=== PATIENT | female | born 1995 | race Caucasian/White ===

== ENCOUNTER 2022-09-16 09:02 | Inpatient (IN) ==
[2022-09-16] MEDS ORDERED: LACTATED RINGER'S 1,000 ML IV ONE (10:14)
[2022-09-16] MEDS: LACTATED RINGER'S 1,000 ML IV PRN ×2 (15:00→16:27)
[2022-09-16] MEDS ORDERED: LIDOCAINE 1% LOCAL 20 ML VIAL INFIL PRN (15:07)
[2022-09-16] MEDS ORDERED: OXYTOCIN 30 UNITS/500 ML BAG IV PRN ×2 (15:07→22:38)
--- NOTE | 2022-09-16 15:13 | Labor Progress Brief Note ---
Date of Service September 16, 2022 Assessment & Plan (1) : Plan: Pt admitted after prolonged labor check FHR; CAT1 Ctx 2-3mins VE 4/100/-2 pt wshes to have epidural analgesia Results & Data ([facility]) Vital Signs (Past 12 Hours) Vital Signs Temp Pulse Resp BP 09/16/22 14:49 76 124/80 09/16/22 09:46 36.8 C 22
[2022-09-16 15:37] LABS: Hematocrit (blood only) 36.2 % (34.1-44.9); Hemoglobin 12.1 g/dl (12.0-16.0); Mean Corpuscular Hemoglobin 30.2 pg (25.0-34.0); Mean Corpuscular Hgb Conc 33.4 g/dL (32.0-36.0); Mean Corpuscular Volume 90.3 fL (80.0-100.0); Mean Platelet Volume 9.1 fL (9.4-12.3); Platelet Count 264 K/uL (130-400); RDW Coefficient of Variation 13.4 % (11.5-14.5); RDW Standard Deviation 43.8 fL (36.4-46.3); Red Blood Count 4.01 M/uL (3.93-5.22); White Blood Count 15.17 K/ul (4.8-10.8)
[2022-09-16] MEDS ORDERED: ePHEDrine sulfate 50 MG/ML AMP ONE (15:54)
[2022-09-16] MEDS ORDERED: SODIUM CHLORIDE 0.9% INJ 10 ML VIAL ONE (15:55)
[2022-09-16] MEDS ORDERED: LIDOCAINE 2%/EPINEPHRINE 1:200,000 20 ML SDV ONE (15:55)
[2022-09-16] MEDS ORDERED: BUPIVACAINE 0.25% 30 ML VIAL ONE (15:55)
[2022-09-16] MEDS ORDERED: fentaNYL citrate 100 MCG/2 ML VIAL ONE (15:55)
[2022-09-16] MEDS ORDERED: fentaNYL 2MCG/ML ROPIVACAINE 1.25MG/ML 100 ML BAG EPI ONE (15:55)
[2022-09-16] MEDS ORDERED: ONDANSETRON INJ 2 MG/ML 2 ML VIAL IV PRN (16:35)
[2022-09-16] MEDS ORDERED: NALOXONE HCL 1 MG in SODIUM CHLORIDE 0.9% 1000ML 1,000 ML IV PRN (16:35)
[2022-09-16] MEDS ORDERED: NALOXONE HCL 0.4 MG/1 ML VIAL/CARP IV PRN (16:35)
[2022-09-16] MEDS ORDERED: fentaNYL 2MCG/ML ROPIVACAINE 1.25MG/ML 100 ML BAG EPI PRN (16:35)
[2022-09-16] MEDS ORDERED: diphenhydrAMINE 50 MG/ML VIAL IV PRN (16:35)
[2022-09-16] MEDS ORDERED: NALBUPHINE HCL INJ 10 MG/ML AMP IV PRN (16:35)
[2022-09-16] MEDS ORDERED: ePHEDrine sulfate 50 MG/ML AMP IV PRN (16:35)
--- NOTE | 2022-09-16 16:35 | Anesthesiology Consultation ---
Date of Service September 16, 2022 Assessment & Plan ASA ASA2 Proposed Anesthesia Anesthesia Type: Labor Epidural Risk / Benefits Reviewed With: PT / POA / Parent / Guardian, Accepts Plan and Informed Consent Obtained History Height/Weight Height: 5 ft 2 in Weight: 79.832 kg Allergies Allergy/AdvReac Type Severity Reaction Status Date / Time No Known Allergies Allergy Unverified 09/16/22 09:40 Medications Home Medications Medication Instructions Recorded Confirmed Last Taken citalopram 20 mg tablet (Celexa) 20 mg PO DAILY 09/16/22 09/16/22 09/15/22 vits no.124-ferrous fum 1 tab PO DAILY 09/16/22 09/16/22 09/15/22 27 mg iron-folic acid 800 mcg tablet ( Vitamin) Active Medications Generic Name Dose Route Start Last Admin Trade Name Freq PRN Reason Stop Dose Admin Lactated Ringer's 1,000 mls @ 125 mls/hr 09/16/22 15:07 09/16/22 16:27 Lr IV 09/18/22 15:06 125 mls/hr .Q8H PRN Administration L&D Protocol Protocol Past Medical History Medical History (Updated 09/16/22 @ 15:12 by Arash Bradley MD) Anxiety and depression Exercise / Class Metabolic Activity II 4-5 Yardwork/Stairs/Walk up hill Past Surgical History Surgical History (Updated 09/16/22 @ 09:40 by Stephanie Farley RN) H/O wisdom tooth extraction Past Anesthesia History No Hx of Anesthesia Complications and No Family Hx of Anesthesia Complications History of PONV No Hx of PONV and No Hx of Motion Sickness Social History Smoking Status: Former smoker Hx Alcohol Use: No Hx Substance Use: No substance use type: does not use Review of Systems denies fever/cough/ colds/ chest pain/ SOB/ CASIMIRO denies CASIMIRO Physical Exam Vital Signs Last Vital Signs Temp 36.8 C 09/16/22 16:12 Pulse 85 09/16/22 17:32 Resp 22 09/16/22 09:46 BP 145/85 H 09/16/22 17:28 Pulse Ox 97 09/16/22 17:32 ENMT Mouth: no TMJ abnormality and no dentition abnormality Thyromental Distance: > or= 3.5 Finger Breadths Mallampati Class: II Neck neck extension not limited Respiratory normal respiratory effort; no respiratory distress Auscultation: lungs clear to auscultation bilaterally Cardiovascular Rate/Rhythm: regular rate and regular rhythm Neurologic moves all extremities Psychiatric Orientation: alert and oriented x 3 Testing Laboratory Results 09/16/22 15:25
--- NOTE | 2022-09-16 18:27 | Labor Progress Brief Note ---
Date of Service September 16, 2022 Assessment & Plan (1) : Plan: Pt doing well Epidural analgesia in place FHR; CAT 1 ctx 3-4min VE: 6/90/-2 AROM with amnio hook- clear fluid anticipate VD Admission and Anticipated Discharge Date Admission Date: September 16, 2022 Results & Data ([facility]) Vital Signs (Past 12 Hours) Vital Signs Temp Pulse Resp BP Pulse Ox 09/16/22 18:22 94 H 96 09/16/22 18:17 108 H 99 09/16/22 18:12 97 H 97 09/16/22 18:07 98 H 97 09/16/22 18:03 87 118/60 09/16/22 18:02 83 97 09/16/22 17:57 86 97 09/16/22 17:52 88 97 09/16/22 17:49 86 121/58 L 09/16/22 17:47 87 97 09/16/22 17:44 88 121/68 09/16/22 17:42 85 97 09/16/22 17:37 89 97 09/16/22 17:38 90 123/72 09/16/22 16:30 20 09/16/22 16:30 20 09/16/22 17:33 90 133/71 09/16/22 17:30 18 09/16/22 17:30 18 09/16/22 17:32 85 97 09/16/22 17:28 91 H 145/85 H 09/16/22 17:27 92 H 98 09/16/22 17:23 94 H 141/83 H 09/16/22 17:22 90 97 09/16/22 17:18 99 H 120/73 09/16/22 17:17 96 H 97 09/16/22 17:12 97 09/16/22 17:12 95 H 09/16/22 17:12 96 H 129/66 09/16/22 17:10 96 H 134/70 09/16/22 17:07 100 H 99 09/16/22 17:08 95 H 137/71 09/16/22 17:06 96 H 148/79 H 09/16/22 17:03 104 H 157/79 H 09/16/22 17:02 111 H 165/79 H 97 09/16/22 16:57 106 H 160/77 H 98 09/16/22 16:54 112 H 168/76 H 09/16/22 16:52 99 09/16/22 16:52 127 H 09/16/22 16:52 129 H 149/87 H 09/16/22 16:47 96 H 99 09/16/22 16:44 96 H 139/85 09/16/22 16:42 94 H 98 09/16/22 16:37 88 98 09/16/22 16:32 74 98 09/16/22 16:27 75 99 09/16/22 16:22 71 98 09/16/22 16:17 75 98 09/16/22 16:12 36.8 C 82 100 09/16/22 14:49 76 124/80 09/16/22 09:46 36.8 C 22
[2022-09-16] MEDS ORDERED: bisacodyL 10 MG SUPP PR PRN (22:38)
[2022-09-16] MEDS ORDERED: miSOPROStoL 200 MCG TAB PR ONE (22:38)
[2022-09-16] MEDS ORDERED: BENZOCAINE 20% AER SPR 82.5 GM CAN EXT PRN (22:38)
[2022-09-16] MEDS ORDERED: METHYLERGONOVINE MALEATE 0.2 MG/ML AMP IM ONE (22:38)
[2022-09-16] MEDS ORDERED: DIPHTHERIA/TETANUS/PERTUSSIS 0.5 ML SYR/VIAL IM ONE (22:38)
[2022-09-16] MEDS ORDERED: HYDROCORTISONE ACETATE 25 MG SUPP PR PRN (22:38)
--- NOTE | 2022-09-16 23:17 | Delivery Summary ---
DELIVERY NOTE: The patient delivered a live infant male in occiput anterior presentation. There was no nuchal cord. was delivered. Delayed cord clamp was performed. Infant was handed over to the waiting pediatric team. Cord blood was obtained, cord gases were obtained as well. Placenta sp ontaneously delivered. Inspection of the placenta showed a 3-vessel cord. Otherwise, normal placent a. Inspection of the perineum showed a second-degree midline laceration, which was repaired in layer s with 2-0 and 3-0 Vicryl. Rectal exam post-repair showed good sphincter tone. There were no suture s palpated in the rectum. Estimated blood loss was 450 mL. Baby and mother are doing well in recovery. All instruments were re moved from the vagina and accounted for x2 including sponges, needles, and retractors. Job ID: [id number]
[2022-09-17] MEDS: IBUPROFEN 600 MG TAB PO PRN ×5 (00:09→22:00)
[2022-09-17] MEDS ORDERED: miSOPROStoL 200 MCG TAB ONE (01:34)
[2022-09-17] MEDS ORDERED: METHYLERGONOVINE MALEATE 0.2 MG/ML AMP ONE (01:35)
[2022-09-17] MEDS: ACETAMINOPHEN 325 MG TAB PO PRN ×2 (05:07→22:01)
--- NOTE | 2022-09-17 07:04 | Obstetrical Progress Note ---
Date of Service September 17, 2022 Assessment & Plan (1) : PPD #1 pt doing well no complaints d/c AM tomorrow CBC pending Results & Data ([facility]) Vital Signs (Past 12 Hours) Vital Signs Temp Pulse Pulse Resp BP BP Pulse Ox 09/17/22 03:10 36.5 C 91 H 18 116/76 98 09/17/22 00:59 36.8 C 85 18 121/79 96 09/17/22 00:35 36.9 C 18 09/17/22 00:05 18 09/16/22 23:35 18 09/16/22 23:20 18 09/16/22 23:05 18 09/16/22 22:50 18 09/16/22 22:35 36.9 C 18 09/17/22 00:42 87 124/72 09/17/22 00:13 87 123/70 09/16/22 23:18 84 119/60 09/16/22 23:03 97 H 119/57 L 09/16/22 22:48 105 H 114/57 L 09/16/22 21:30 20 09/16/22 21:30 20 09/16/22 22:33 112 H 121/59 L 09/16/22 22:18 101 H 126/57 L 09/16/22 22:19 112 H 110/57 L 09/16/22 22:12 136 H 96 09/16/22 22:07 133 H 94 09/16/22 22:02 94 09/16/22 22:02 125 H 09/16/22 22:03 107 H 120/58 L 09/16/22 22:02 114 H 89 L 09/16/22 21:57 110 H 96 09/16/22 21:56 110 H 88 L 09/16/22 21:52 116 H 97 09/16/22 21:51 113 H 90 09/16/22 21:49 96 H 127/60 09/16/22 21:47 105 H 95 09/16/22 21:42 98 H 97 09/16/22 21:37 93 H 97 09/16/22 21:33 100 H 122/76 09/16/22 21:32 90 97 09/16/22 21:27 94 H 97 09/16/22 21:22 90 97 09/16/22 21:19 87 111/69 09/16/22 21:17 91 H 97 09/16/22 21:12 87 97 09/16/22 21:00 18 09/16/22 21:00 37.6 C H 18 09/16/22 21:07 87 97 09/16/22 21:03 88 122/69 09/16/22 21:02 94 H 98 09/16/22 20:57 92 H 98 09/16/22 20:52 96 H 98 09/16/22 20:48 92 H 111/69 09/16/22 20:47 85 97 09/16/22 20:42 84 96 09/16/22 20:37 83 96 09/16/22 20:34 86 111/65 09/16/22 20:32 81 98 09/16/22 20:30 18 09/16/22 20:30 18 09/16/22 20:27 86 98 09/16/22 20:00 18 09/16/22 20:00 18 09/16/22 20:22 83 99 09/16/22 20:19 81 119/67 09/16/22 20:17 84 98 09/16/22 20:12 82 98 09/16/22 20:07 80 98 09/16/22 20:03 90 120/67 09/16/22 20:02 102 H 98 09/16/22 19:57 77 97 09/16/22 19:52 73 97 09/16/22 19:50 80 113/64 09/16/22 19:48 111 H 91 09/16/22 19:47 78 99 09/16/22 19:42 79 99 09/16/22 19:37 78 98 09/16/22 19:34 76 110/65 09/16/22 19:30 18 09/16/22 19:30 18 09/16/22 19:32 79 99 09/16/22 19:27 78 98 09/16/22 19:22 77 100 09/16/22 19:20 74 113/65 09/16/22 19:17 75 98 09/16/22 19:12 78 98 09/16/22 19:07 77 99 09/16/22 19:03 85 110/67 O2 Del Method 09/17/22 03:10 Room Air 09/17/22 00:59 Room Air 09/17/22 00:35 09/17/22 00:05 09/16/22 23:35 09/16/22 23:20 09/16/22 23:05 09/16/22 22:50 09/16/22 22:35 09/17/22 00:42 09/17/22 00:13 09/16/22 23:18 09/16/22 23:03 09/16/22 22:48 09/16/22 21:30 09/16/22 21:30 09/16/22 22:33 09/16/22 22:18 09/16/22 22:19 09/16/22 22:12 09/16/22 22:07 09/16/22 22:02 09/16/22 22:02 09/16/22 22:03 09/16/22 22:02 09/16/22 21:57 09/16/22 21:56 09/16/22 21:52 09/16/22 21:51 09/16/22 21:49 09/16/22 21:47 09/16/22 21:42 09/16/22 21:37 09/16/22 21:33 09/16/22 21:32 09/16/22 21:27 09/16/22 21:22 09/16/22 21:19 09/16/22 21:17 09/16/22 21:12 09/16/22 21:00 09/16/22 21:00 09/16/22 21:07 09/16/22 21:03 09/16/22 21:02 09/16/22 20:57 09/16/22 20:52 09/16/22 20:48 09/16/22 20:47 09/16/22 20:42 09/16/22 20:37 09/16/22 20:34 09/16/22 20:32 09/16/22 20:30 09/16/22 20:30 09/16/22 20:27 09/16/22 20:00 09/16/22 20:00 09/16/22 20:22 09/16/22 20:19 09/16/22 20:17 09/16/22 20:12 09/16/22 20:07 09/16/22 20:03 09/16/22 20:02 09/16/22 19:57 09/16/22 19:52 09/16/22 19:50 09/16/22 19:48 09/16/22 19:47 09/16/22 19:42 09/16/22 19:37 09/16/22 19:34 09/16/22 19:30 09/16/22 19:30 09/16/22 19:32 09/16/22 19:27 09/16/22 19:22 09/16/22 19:20 09/16/22 19:17 09/16/22 19:12 09/16/22 19:07 09/16/22 19:03
[2022-09-17 08:17] LABS: Hematocrit (blood only) 38.5 % (34.1-44.9); Hemoglobin 13.1 g/dl (12.0-16.0); Mean Corpuscular Volume 88.3 fL (80.0-100.0); Mean Platelet Volume 9.7 fL (9.4-12.3); Platelet Count 263 K/uL (130-400); RDW Coefficient of Variation 13.3 % (11.5-14.5); RDW Standard Deviation 42.9 fL (36.4-46.3); Red Blood Count 4.36 M/uL (3.93-5.22); White Blood Count 24.91 K/ul (4.8-10.8)
[2022-09-17] MEDS: DOCUSATE SODIUM 100 MG CAP PO SCH ×2 (08:54→22:01)
[2022-09-17] MEDS: FERROUS SULFATE 325 MG TAB PO SCH (08:54)
[2022-09-17] MEDS: PRENATAL VITAMIN 1 TAB PO SCH (08:54)
[2022-09-17] MEDS: CITALOPRAM 20 MG TAB PO SCH (08:54)
--- NOTE | 2022-09-17 08:59 | Anesthesia Procedure Note ---
Date of Service September 17, 2022 Anesthesia Post Epidural Note Vital Signs Vital Signs: Temp Pulse Resp BP Pulse Ox O2 Del Method 36.5 C 91 H 18 116/76 98 09/17/22 03:10 09/17/22 03:10 09/17/22 03:10 09/17/22 03:10 09/17/22 03:10 09/17/22 03:10 Pain Intensity Bilateral Abdomen: Pain Intensity: 3 Notes Mental Status: alert / awake / arousable and participated in evaluation Nausea / Vomiting: adequately controlled Pain: adequately controlled Airway Patency, RR, SpO2: stable & adequate BP & HR: stable & adequate Hydration State: stable & adequate Neuraxial Anesthesia: was administered and sensory block resolved Anesthetic Complications: no major complications apparent and Pt Satisfied with anesthetic care Epidural: Removed without complications and With tip intact
[2022-09-17] MEDS ORDERED: bisacodyL 5 MG TABEC PO SCH (20:00)
[2022-09-18] MEDS: IBUPROFEN 600 MG TAB PO PRN (04:46)
[2022-09-18 06:19] LABS: Hematocrit (blood only) 35.2 % (34.1-44.9)
[2022-09-18] MEDS: FERROUS SULFATE 325 MG TAB PO SCH (07:35)
[2022-09-18] MEDS: PRENATAL VITAMIN 1 TAB PO SCH (07:35)
[2022-09-18] MEDS: DOCUSATE SODIUM 100 MG CAP PO SCH (07:35)
[2022-09-18] MEDS: CITALOPRAM 20 MG TAB PO SCH (07:36)
[2022-09-18 08:47] LABS: Basophils # (auto) 0.05 K/uL (0-0.2); Basophils % (auto) 0.3 %; Eosinophils # (auto) 0.15 K/uL (0-0.50); Immature Granulocytes % (auto) 0.7 %; Lymphocytes # (auto) 3.29 K/uL (1.2-3.4); Lymphocytes % (auto) 22.1 %; Mean Corpuscular Hemoglobin 29.9 pg (25.0-34.0); Mean Platelet Volume 9.8 fL (9.4-12.3); Monocytes # (auto) 0.66 K/uL (0.24-0.82); Monocytes % (auto) 4.4 %; Neutrophils # (auto) 10.61 K/uL (1.4-6.5); Neutrophils % (auto) 71.5 %; Platelet Count 284 K/uL (130-400); RDW Coefficient of Variation 13.5 % (11.5-14.5); RDW Standard Deviation 44.8 fL (36.4-46.3); Red Blood Count 3.98 M/uL (3.93-5.22); White Blood Count 14.86 K/ul (4.8-10.8)
--- NOTE | 2022-09-18 09:03 | Obstetrical Progress Note ---
Date of Service September 18, 2022 Assessment & Plan Admission and Anticipated Discharge Date Admission Date: September 16, 2022 Subjective Patient is seen and examined. She feels well, no complaints. Ambulating without dizziness Voiding without difficulty Tolerating regular diet with out N&V Bleeding is minimal No fever/ chills/ CP/ SOB/ N&V/ Leg pain Breast feeding without problems Lab Results 09/16/22 09/16/22 09/16/22 Range/Units 15:25 22:11 Unknown WBC 15.17 H (4.8-10.8) K/ul RBC 4.01 (3.93-5.22) M/uL Hgb 12.1 (12.0-16.0) g/dl Hct 36.2 (34.1-44.9) % MCV 90.3 (80.0-100.0) fL MCH 30.2 (25.0-34.0) pg MCHC 33.4 (32.0-36.0) g/dL RDW Std Deviation 43.8 (36.4-46.3) fL RDW Coeff of Josep 13.4 (11.5-14.5) % Plt Count 264 (130-400) K/uL MPV 9.1 L (9.4-12.3) fL Immature Gran % (Auto) % Neut % (Auto) % Lymph % (Auto) % [place] % (Auto) % Eos % (Auto) % Baso % (Auto) % Neut # (Auto) (1.4-6.5) K/uL Lymph # (Auto) (1.2-3.4) K/uL [place] # (Auto) (0.24-0.82) K/uL Eos # (Auto) (0-0.50) K/uL Baso # (Auto) (0-0.2) K/uL Immature Gran # (Auto) (0.00-0.02) K/uL Cord VBG pH TNP Cord VBG pCO2 TNP Cord VBG pO2 TNP Cord VBG HCO3 TNP Cord VBG Base Excess TNP Cord VBG O2 Sat TNP Blood Gas Comments Not Reportable SARS-CoV-2, RNA, NAAT NEGATIVE (NEGATIVE) 09/17/22 09/18/22 Range/Units 07:39 06:02 WBC 24.91 H D 14.86 H D (4.8-10.8) K/ul RBC 4.36 3.98 (3.93-5.22) M/uL Hgb 13.1 12.0 (12.0-16.0) g/dl Hct 38.5 35.2 (34.1-44.9) % MCV 88.3 (80.0-100.0) fL MCH 30.0 29.9 (25.0-34.0) pg MCHC 34.0 (32.0-36.0) g/dL RDW Std Deviation 42.9 44.8 (36.4-46.3) fL RDW Coeff of Josep 13.3 13.5 (11.5-14.5) % Plt Count 263 284 (130-400) K/uL MPV 9.7 9.8 (9.4-12.3) fL Immature Gran % (Auto) 0.7 % Neut % (Auto) 71.5 % Lymph % (Auto) 22.1 % [place] % (Auto) 4.4 % Eos % (Auto) 1.0 % Baso % (Auto) 0.3 % Neut # (Auto) 10.61 H (1.4-6.5) K/uL Lymph # (Auto) 3.29 (1.2-3.4) K/uL [place] # (Auto) 0.66 (0.24-0.82) K/uL Eos # (Auto) 0.15 (0-0.50) K/uL Baso # (Auto) 0.05 (0-0.2) K/uL Immature Gran # (Auto) 0.10 H (0.00-0.02) K/uL Cord VBG pH Cord VBG pCO2 Cord VBG pO2 Cord VBG HCO3 Cord VBG Base Excess Cord VBG O2 Sat Blood Gas Comments SARS-CoV-2, RNA, NAAT (NEGATIVE) Vital Signs Temp Pulse Resp BP Pulse Ox O2 Del Method 09/18/22 07:45 36.5 C 78 16 112/73 96 Room Air 09/18/22 00:00 36.6 C 86 18 101/68 97 Room Air Vital Signs Temp Pulse Resp BP Pulse Ox O2 Del Method 09/18/22 07:45 36.5 C 78 16 112/73 96 Room Air 09/18/22 00:00 36.6 C 86 18 101/68 97 Room Air 09/17/22 20:00 36.5 C 88 18 119/75 95 Room Air 09/17/22 16:15 36.4 C L 80 18 97/66 L 09/17/22 11:30 36.6 C 89 16 104/67 PE: General: Alert, orientedx3, NAD Abd: soft, NT, fundus firm, below Umbilicus Perineum intact, Lochia rubra minimal Ext; NT, no edema AP: 27 yo s/p , ppd# 2 VSS Afebrile doing well Continue routine care All questions were answered Discussed when to call D/C home , f/u in office Results & Data ([facility]) Vital Signs (Past 12 Hours) Vital Signs Temp Pulse Resp BP Pulse Ox O2 Del Method 09/18/22 07:45 36.5 C 78 16 112/73 96 Room Air 09/18/22 00:00 36.6 C 86 18 101/68 97 Room Air
[2022-09-18 12:16] LABS: Mean Corpuscular Hgb Conc 34.1 g/dL (32.0-36.0); Mean Corpuscular Volume 88.9 fL (80.0-100.0)
--- NOTE | 2022-09-27 06:54 | Coding Query ---
CODING QUERY To promote full compliance with coding requirements relating to patient care, provider participation is requested in all cases of commercial construction superintendent uncertainty. Please assist us with the question(s) below: Coding Question(s): Please clarify the gestation weeks at time of admission. This documentation is missing in the progress notes. Physician's Response(s): 37.4 weeks Thank you Monica Miller Principal Diagnosis: "that condition established after study, to be chiefly responsible for occasioning the admission of the patient to the hospital for care." Co-Existing Principal Diagnosis: "when two or more diagnoses equally meet the criteria for principal diagnosis as determined by the circumstances of admission, diagnostic work up, and/or therapy provided, and the Alphabetic Index, Tabular List, or another coding guideline does not provide sequencing direction, any one of the diagnoses may be sequenced first." "When the physician has documented what appears to be a current diagnosis in the body of the record, but has not included the diagnosis in the final diagnostic statement, the physician should be asked whether the diagnosis should be added." (Source Coding [facility] 2 QTR90. p3-4) DUTCH
== END 2022-09-18 10:30 | disposition home or self-care (01) | DRG 807 ==
LOC: OPB 09:02 → 4S1 09:06 → 4E2 09-17 01:00

== ENCOUNTER 2024-01-28 08:35 | Inpatient (IN) ==
[2024-01-28] MEDS ORDERED: OXYTOCIN 30 UNITS/NSS 30 UNITS/500 ML BAG IV PRN ×2 (09:25→17:27)
[2024-01-28] MEDS ORDERED: CALCIUM CARBONATE 500 MG CHEWABLE TAB PO PRN (09:25)
[2024-01-28] MEDS ORDERED: LIDOCAINE 1% LOCAL 20 ML VIAL INFIL PRN (09:25)
--- NOTE | 2024-01-28 09:31 | History & Physical Report ---
Date of Service January 28, 2024 Assessment & Plan (1) labor in third trimester: Plan: 28 yo at 36.5 wks presenting in active labor, VSS afebrile, FHR reassuring GBS unknown Plan to admit, monitor, labs, PCN for unknonw GBS, epidural for pain History of Present Illness Primary Care Provider: NO PCP Patient is a 28 yo at 36.5 wks who walked in to L&D with ctxs started at 03:30 AM, getting more regular and painful. No LOF/VB +FM Her has been uncomplicated except unknown GBS and close interval. Allergies Allergy/AdvReac Type Severity Reaction Status Date / Time No Known Allergies Allergy Unverified 09/16/22 09:40 Home Medications Medication Instructions Recorded Confirmed Type citalopram 20 mg tablet (Celexa) 20 mg PO DAILY 09/16/22 09/16/22 History vits no.124-ferrous fum 1 tab PO DAILY 09/16/22 09/16/22 History 27 mg iron-folic acid 800 mcg tablet ( Vitamin) ibuprofen 600 mg tablet 600 mg PO Q6 #40 tabs 09/18/22 Rx vits no.124-ferrous fum 1 tab PO DAILY@08 #90 tabs 09/18/22 Rx 27 mg iron-folic acid 800 mcg tablet ( Vitamin) Patient History Medical History Anxiety and depression Surgical History H/O wisdom tooth extraction Social History Smoking Status: Never smoker Second Hand Exposure: No; Do You Dip or Chew Tobacco: No; Tobacco Cessation Education Requested by Patient: No Hx Alcohol Use: No Hx Substance Use: No Preferred Language: [place] Communication Ability: Effective Floor Mechanic Required: No Beliefs That Will Affect Care: None marital status: Current Living Situation: Spouse and Family Other Information That Helps Us Care for You: No Feels Safe at Home: Yes Safety Concerns: Feels Safe At This Time Assistive Devices: Glasses OB History FT , in 2021 [employer]LECT[employer]ING [employer] History No h/o STD's Review of Systems as per Subjective / HPI Physical Exam Constitutional: WD/WN, vitals as above Genitourinary: normal external appearance OB Exam Abdomen: + vertex Manual OB Exam: + cervical dilation 6 cm, + cervical effacement 60% and + station -2 (large bulging bag) OB Exam Monitor Tracing: + external FHT monitor used and + category I Results & Data Vital Signs (Past 12 Hours) Vital Signs Temp Pulse Resp BP 01/28/24 08:52 36.5 C 01/28/24 08:45 36.5 C 82 18 107/65 (1) labor in third trimester labor delivery status: with delivery in third trimester Fetus number: fetus 1 of multiple gestation Qualified Code(s): O60.14X1 - labor third trimester with delivery third trimester, fetus 1
--- OUTSIDE RECORDS SUMMARY | 2024-01-28 09:40 | External Medical Summary | Summary of Care ---
Author Name Unknown Organization [facility] [address] [facility] [address] Phone [phone] Care Team Providers Care Vaccinator Name Role Phone Unavailable Primary Care Provider Unavailabl e Reason for Visit * Reason Onset Date Comments Hospital Call 01/28/2024 Encounter Details Date Type Department Care Team (Late st Contact Info) Description 01/28/2024 Telephone Gynecology/Obstetrics [facility] [address] [facility] [place] [address] [facility] [address] [facility] [place] [address] [facility] Call Allergies No known active allergiesdocumented as of this encounter (statuses as of 01/28/2024) Medications Medication Sig Dispensed Refills Start Date End Date Status 19 Oral Tablet Take 1 Tablet by mouth in the morning. 0 Active Citalopram Hydrobromide 20 MG Oral Tablet (CeleXA) Take 1 Tablet by mouth daily in the morning. 90 Tablet 1 02/15/2023 Active documented as of this encounter (statuses as of 01/28/2024) Active Problems Problem Noted Date Diagnosed Date Limited care in second trimester 2023 Supervision of other normal , antepartu m 07/23/2023 YOHAN (generalized anxiety disorder) 05/31/2022 Hidradenitis suppurativa 04/12/2020 Overview: 04/12/20 - primarily inguinal folds. Hx of acne. Normal BMI. Started on clindamycin lotion and daily spironolactone. F/u in 3 mo. - Lilly Nieto CNM Estimated Date of Delivery Comme nts Yes 02/20/2024 Based on last me nstrual period of 05/16/2023 documented as of this encounter (statuses as of 01/28/2024) Resolved Problems Problem Noted Date Diagnosed Date Resolved Date , normal first 03/15/202208/02 Depression complicating , antepartum 03/15/20 22 08/20/2023 YOHAN (generalized anxiety disorder) 08/10/2017 10/17/2019 Acquired hypothyroidism 08/10/201710/01 Menstruation, irregular 04/17/201206/02 documented as of this encounter (statuses as of 01/28/2024) Immunizations Name Administration Dates Next Due DT - Diptheria/Tetanus (PEDS) 10/26/1998 DTP Vaccine 11/19/2001, 8,1997,08/13 HPV Vaccine, 4-Valent 06/28/2015,09/17/2008,07/01 Hep A - Hepatitis A (ped/ado le, 1-18 Yrs) 07/14/2008 Hepatitis B, 0-19 yrs 1997,1997,06/01 MMR - Measles/Mumps/Rubella Vaccine 11/19/2001,0 06/22/1998 Meningococcal Conjugate Vacc ine (Menactra/Menveo) 07/14/2008 OPV - Polio Virus Vaccine (Oral) 002,10/26/1998,1997,08/13 Seasonal Influenza, Split, I IV3, With Preserve, Inj 08/05/2014,09/03/2013 TDAP (age 10 and older)(Boostrix) 11/26/2023,01/2022,04/16/2019 Varicella Vaccine (Chicken Pox) 08/18/2008,07/14,06/22/1998 documented as of this encounter Social History Tobacco Use Types Packs/Day Years Used Date Smoking Tobacco: Former Cigarettes Q uit: 10/13/2019 Smokeless Tobacco: Never Comments:Quit Oct 2019 Alcohol Use Standard Drinks/Week Comments No 0 (1 standard drink = 0.6 oz pur e alcohol) PHQ-2 Answer Date Recorded PHQ-2 Score 0 04/12/2020 Hunger Vital Sign Answer Date Recorded Within the past 12 months, y ou worried that your food would run out before you got the money to buy more. Patient declined Within the past 12 months, t he food you bought just didn't last and you didn't have money to get more. Patient declined Ingraham Depression Scale Answer Date Recorded Ingraham Depression Scale Total 0 07/23/2023 The thought of harming myself has occurred to me . Never 07/23/2023 Estimated Date of Delivery Comme nts Yes 02/20/2024 Based on last me nstrual period of 05/16/2023 Sex and Gender Information Value Date Recorded Sex Assigned at Female 02/16/2022 3:12 PM EDT Gender Identity Female 02/16/2022 3:12 PM EDT Sexual Orientation Straight 02/16/2022 3: 12 PM EDT Job Start Date Occupation Industry Not on file Not on file Not on file documented as of this encounter Miscellaneous Notes * Telephone Encounter - Jessica Roche MD - 01/28/2024 7:23 AM EDT Patient called the answering service complaining of contractions every 3 to 5 minutes that are painful starting at 5 AM. Denies leaking of fluid or vaginal bleeding. Notes good movement. Upon asking where she lives she states she still lives an hour away and she wants to deliver at [facility]. There are no other closer hospitals for her. Recommend patient come to labor and delivery as soon as possible, but to call the ambulance if unable to get here sooner. She voiced her understandingand agreement with the plan. Updated labor and delivery staff Jessica Roche MD, Ph.D., FACOG [address] [place] [address] [address] [facility] [place] [address] 01/28/2024 7:24 AM This chart was completed in part utilizing [employer] Speech Voice Recognition Software. Grammatical errors, random word insertions, prounoun errors, and incomplete sentences are an occasional consequence of this system due to software limitations, ambient noise, and hardware issues. Any formal questions or concerns about the content, text, or information contained within the body of this dictation should be directly addressed to the provider for clarification. documented in this encounter Plan of Treatment Upcoming Encounters Date Type Department Care Team (Late st Contact Info) Description 01/28/2024 11:00 AM EDT Office Visit Gynecology/Obstetrics [facility] [address] [place] [address] Suzette Newman PA-C [address] [place] [address] Health Maintenance Due Date Last Done Comments Depression Screening 04/12/2021 04/12/2020 COVID-19 Vaccine ( season) 2023 Influenza Vaccine (FLU shot) (Season Ended) 2024 08/05/2014, 09/03/2013 Pap Smear 10/27/2025 10/27/2022, 03/31, 04/12/2020 DTaP,Tdap,and Td Vaccines (9 - Td or Tdap) 11/26/2033 11/26/2023, 07/05/2022, 04/16/2019, Additional history exists Hepatitis B Completed 1997, 08/01, 1997 MENINGOCOCCAL (MENACTRA/MENVEO) Aged Out 07/14/2008 No longer eligible based on patient's age to complete this topic GARDASIL-HPV IMMUNIZATION SERIES Completed 06/28/2015, 09/17/2008, 07/14/2008 Gonorrhea / Chlamydia Screen Discontinued 07/23/2023, 02/16/2022, 10/12/2020, Additional history exists Pneumococcal Vaccine: Pediatrics (0 to 5 Years) and At-Risk Patients (6 to 64 Years) Aged Out No longer eligible based on patient's age to complete this topic documented as of this encounter Medical Devices Not on filedocumented as of this encounter
--- OUTSIDE RECORDS SUMMARY | 2024-01-28 09:40 | External Medical Summary | Summary of Care ---
Author Name Unknown Organization [facility] Address [address] [facility] [place] [address] Phone [phone] Care Team Providers Care Ore Puncher Name Role Phone Unavailable Primary Care Provider Unavailabl e Reason for Visit * Reason Comments Return Visit Encounter Details Date Type Department Care Team (Late st Contact Info) Description 12/31/2023 10:15 AM EDT Office Visit Gynecology/Obstetric s [address] [place] [address] Susanna Matthew CRNP [address] [place] [address] Encounter for supervision of other normal in third trimester*; Limited care in second trimester Allergies No known active allergiesdocumented as of this encounter (statuses as of 12/31/2023) Medications Medication Sig Dispensed Refills Start Date End Date Status 19 Oral Tablet Take 1 Tablet by mouth in the morning. 0 Active Citalopram Hydrobromide 20 MG Oral Tablet (CeleXA) Take 1 Tablet by mouth daily in the morning. 90 Tablet 1 02/15/2023 Active documented as of this encounter (statuses as of 12/31/2023) Active Problems Problem Noted Date Diagnosed Date [...] as of this encounter (statuses as of 12/31/2023) Resolved Problems Problem Noted Date Diagnosed Date Resolved Date , normal first 03/15/202208/02 Depression complicating , antepartum 03/15/20 22 08/20/2023 YOHAN (generalized anxiety disorder) 08/10/2017 10/17/2019 Acquired hypothyroidism 08/10/201710/01 Menstruation, irregular 04/17/201206/02 documented as of this encounter (statuses as of 12/31/2023) Immunizations Name Administration Dates Next Due DT [...] have money to get more. Patient declined [place] Depression Scale Answer Date Recorded [place] Depression Scale Total 0 07/23/2023 The thought [...] on file documented as of this encounter Last Filed Vital Signs Vital Sign Reading Time Taken Comments Blood Pressure 100/60 12/31/2023 10:14 AM EDT Pulse - - Temperature - - Respiratory Rate - - Oxygen Saturation - - Inhaled Oxygen Concentration - - Weight 68.9 kg (152 lb) 12/31/2023 10:14 AM EDT Height 157.5 cm (5' 2") 12/31/2023 10:14 AM EDT Body Mass Index 27.8 12/31/2023 10:14 AM EDT documented in this encounter Progress Notes * Susanna Matthew CRNP - 12/31/2023 10:25 AM EDT 32w5d No concerns. Baby is active. No contractions, bleeding, LOF. Denies n/v. Discussed contraception, likely will do OCP. Considering pumping and bottle feeding. LYLA Alfredo * Tiny Pineda LPN - 12/31/2023 10:14 AM EDT 32w5d Denies any concerns documented in this encounter Plan of Treatment Upcoming Encounters Date Type Department Care Team (Late st Contact Info) Description 01/14/2024 9:45 AM EDT Office Visit Gynecology/Obstetrics [address] [place] [address] Susanna Matthew CRNP [address] [place] [address] Health Maintenance Due Date Last Done Comments [...] Not on filedocumented as of this encounter Visit Diagnoses Diagnosis Encounter for supervision of other normal in third trimester- Primary Limited care in second trimester documented in this encounter
--- OUTSIDE RECORDS SUMMARY | 2024-01-28 09:40 | External Medical Summary | Summary of Care ---
Author Name Unknown Organization [facility] Address [address] [facility] [place] [address] Phone [phone] Care Team Providers Care Rectifying Attendant Name Role Phone Unavailable Primary Care Provider Unavailabl e Reason for Visit * Reason Onset Date Comments Appointment 01/14/2024 Return in about 2 weeks (around 01/28/2024) for hermelinda. Encounter Details Date Type Department Care Team (Late st Contact Info) Description 01/14/2024 Telephone Gynecology/Obstetrics [address] [place] [phone] Susanna Matthew CRNP [address] [place] [address] Appointment (Return in about 2 weeks (arou... Allergies No known active allergiesdocumented as of this encounter (statuses as of 01/14/2024) Medications Medication Sig Dispensed Refills Start Date End Date Status 19 Oral Tablet Take 1 Tablet by mouth in the morning. 0 Active Citalopram Hydrobromide 20 MG Oral Tablet (CeleXA) Take 1 Tablet by mouth daily in the morning. 90 Tablet 1 02/15/2023 Active documented as of this encounter (statuses as of 01/14/2024) Active Problems Problem Noted Date Diagnosed Date [...] as of this encounter (statuses as of 01/14/2024) Resolved Problems Problem Noted Date Diagnosed Date Resolved Date , normal first 03/15/202208/02 Depression complicating , antepartum 03/15/20 22 08/20/2023 YOHAN (generalized anxiety disorder) 08/10/2017 10/17/2019 Acquired hypothyroidism 08/10/201710/01 Menstruation, irregular 04/17/201206/02 documented as of this encounter (statuses as of 01/14/2024) Immunizations Name Administration Dates Next Due DT [...] have money to get more. Patient declined [place] Depression Scale Answer Date Recorded [place] Depression Scale Total 0 07/23/2023 The thought [...] encounter Miscellaneous Notes * Telephone Encounter - Reta Adrian OSA - 01/14/2024 11:24 AM EDT Pt scheduled 01/27 at 11 AM at . MyG sent * Telephone Encounter - Boni Brand OSA - 01/14/2024 10:37 AM EDT Please assist in scheduling 2 week appt. Pt needs a Sunday appt. She stated it can be sent through her [employer] Portal . Thank you. documented in this encounter Plan of Treatment Upcoming Encounters Date Type Department Care Team (Late st Contact Info) Description 01/28/2024 11:00 AM EDT Office Visit Gynecology/Obstetrics [facility] [address] [place] [address] Suzette Newman PA-C [address] [place] [address] Health Maintenance Due Date Last Done Comments Depression Screening 04/12/2021 04/12/2020 COVID-19 Vaccine (2022-24 season) 2023 Influenza Vaccine (FLU shot) (Season [...]
--- OUTSIDE RECORDS SUMMARY | 2024-01-28 09:40 | External Medical Summary | Summary of Care ---
Author Name Unknown Organization [facility] Address [address] [facility] [place] [address] Phone [phone] Care Team Providers Care Private Watchman Name Role Phone Unavailable Primary Care Provider Unavailabl e Reason for Visit * Reason Comments Return Visit Encounter Details Date Type Department Care Team (Late st Contact Info) Description 01/14/2024 9:45 AM EDT Office Visit Gynecology/Obstetric s [address] [place] [address] Susanna Matthew CRNP [address] [place] [phone] Supervision of other normal , antepartum*; Limited care in second trimester Allergies No [...] have money to get more. Patient declined [place] Depression Scale Answer Date Recorded [place] Depression Scale Total 0 07/23/2023 The thought [...] Reading Time Taken Comments Blood Pressure 100/60 01/14/2024 9:54 AM EDT Pulse - - Temperature - - Respiratory Rate - - Oxygen Saturation - - Inhaled Oxygen Concentration - - Weight 63 kg (138 lb 14.2 oz) 01/14/2024 9:54 AM EDT Height 157.5 cm (5' 2") 01/14/2024 9:54 AM EDT Body Mass Index 25.4 01/14/2024 9:54 AM EDT documented in this encounter Progress Notes * Susanna Matthew CRNP - 01/14/2024 10:06 AM EDT 34w5d No concerns. Pt reports good FM. No contractions, bleeding, LOF. GBS next visit. LYLA Alfredo * Tiny Pineda LPN - 01/14/2024 9:54 AM EDT 34w5d Denies any concerns documented in this encounter Plan of Treatment Health Maintenance Due Date Last Done Comments [...] as of this encounter Visit Diagnoses Diagnosis Supervision of other normal , antepartum- Primary Limited care in second trimester documented in this encounter
--- OUTSIDE RECORDS SUMMARY | 2024-01-28 09:41 | External Medical Summary ---
Author Name Unknown Address Unknown Organization [id number]:[facility]ORY [facility] [place] - [address] [facility] [place] [address] Laboratory Report Ordering Provider Test Date Status JEREMIAH YANG 11/26/2023 10:14:55 Final Observation Date Value Abnormality Reference (Units ) Status Treponema pallidum Ab [Presence] in Serum by Immunoassay 11/26/2023 10:14:55 Nonreactive Nonreactive Final No serologic evidence of syp hilis. No additional testing clinicially indicated at this time. Consider repeat testing in 2-4 weeks if acute or primary syphilis is suspected. Performing Location [facility] [place] - [address] [place] [address]
--- OUTSIDE RECORDS SUMMARY | 2024-01-28 09:41 | External Medical Summary ---
Author Name Unknown Address Unknown Organization [id number]:LABORATORY [facility] [place] [address] - [address] [place] [address] Laboratory Report Ordering Provider Test Date Status JEREMIAH YANG 11/26/2023 10:14:55 Final Observation Date Value Abnormality Reference (Units ) Status Glucose [Moles/volume] in Serum or Plasma --1 hour post 50 g glucose PO 11/26/2023 10:14:55 91 70-129 (mg/dL) Final Performing Location LAB[facility]ORY [facility] [place] [address] - [address] [place] [address]
--- OUTSIDE RECORDS SUMMARY | 2024-01-28 09:41 | External Medical Summary ---
Author Name Unknown Address Unknown Organization [id number]:[facility] [place] [address] [place] [address] Laboratory Report Ordering Provider Test Date Status JEREMIAH YANG 11/26/2023 10:14:55 Final Observation Date Value Abnormality Reference (Units ) Status TSH 11/26/2023 10:14:55 1.81 0.27-4.20 (uIU/mL) Final Performing Location LABORATORY [facility] - [address] [place] [address]
--- OUTSIDE RECORDS SUMMARY | 2024-01-28 09:41 | External Medical Summary | Summary of Care ---
Author Name Unknown Organization [facility] [address] [facility] [address] Phone [phone] Care Team Providers Care Tyre Builder Name Role Phone Unavailable Primary Care Provider Unavailabl e Reason for Visit * Reason Comments Outpatient Testing Encounter Details Date Type Department Care Team (Late st Contact Info) Description 11/26/2023 9:40 AM EST Laboratory [facility], [facility] [address] [facility] [phone] [facility] [address] [facility] [address] 23 weeks gestation of Allergies No known active allergiesdocumented as of this encounter (statuses as of 11/26/2023) Medications Medication Sig Dispensed Refills Start Date End Date Status 19 Oral Tablet Take 1 Tablet by mouth in the morning. 0 Active Citalopram Hydrobromide 20 MG Oral Tablet (CeleXA) Take 1 Tablet by mouth daily in the morning. 90 Tablet 1 02/15/2023 Active documented as of this encounter (statuses as of 11/26/2023) Active Problems Problem Noted Date Diagnosed Date [...] as of this encounter (statuses as of 11/26/2023) Resolved Problems Problem Noted Date Diagnosed Date Resolved Date , normal first 03/15/202208/02 Depression complicating , antepartum 03/15/20 22 08/20/2023 YOHAN (generalized anxiety disorder) 08/10/2017 10/17/2019 Acquired hypothyroidism 08/10/201710/01 Menstruation, irregular 04/17/201206/02 documented as of this encounter (statuses as of 11/26/2023) Immunizations Name Administration Dates Next Due DT [...] have money to get more. Patient declined [place] Depression Scale Answer Date Recorded [place] Depression Scale Total 0 07/23/2023 The thought [...] on file documented as of this encounter Plan of Treatment Pending Results Name Type Priority Associated Diagnoses Date /Time SYPHILIS ANTIBODY SCREEN WITH REFLEX TO RPR Lab Routine 23 weeks gestation of 11/26/2023 10:14 AM EST CBC WITH WBC DIFFERENTIAL AND ANEMIA REFLEX WORKUP Lab Routine 23 weeks gestation of 11/26/2023 10:14 AM EST 50-G GESTATIONAL GLUCOSE, 1 HOUR Lab Routine 23 weeks gestation of 11/26/2023 10:14 AM EST TSH WITH FREE T4 IF INDICATED Lab Routine 23 weeks gestation of 11/26/2023 10:14 AM EST SYPHILIS ANTIBODY SCREEN Lab Routine 23 weeks gestation of 11/26/2023 10:14 AM EST ANEMIA CBC Lab Routine 23 weeks gestation of 11/26/2023 10:14 AM EST DIFFERENTIAL, AUTOMATED Lab Routine 23 weeks gestation of 11/26/2023 10:14 AM EST ANEMIA REFLEX CHEMISTRY HOLD Lab Routine 23 weeks gestation of 11/26/2023 10:14 AM EST Health Maintenance Due Date Last Done Comments Depression Screening 04/12/2021 04/12/2020 COVID-19 Vaccine ( season) 2023 Influenza Vaccine (FLU shot) (#1) 2023 08/05/2014, 09/03/2013 Pap Smear 10/27/2025 10/27/2022, 03/31, [...] as of this encounter Visit Diagnoses Diagnosis 23 weeks gestation of state, incidental documented in this encounter
--- OUTSIDE RECORDS SUMMARY | 2024-01-28 09:41 | External Medical Summary | Summary of Care ---
Author Name Unknown Organization [facility] Address [address] [facility] [place] [address] Phone [phone] Care Team Providers Care Photoresist Printer Name Role Phone Unavailable Primary Care Provider Unavailabl e Encounter Details Date Type Department Care Team (Late st Contact Info) Description 10/23/2023 Telephone Gynecology/Obstetrics [facility]with [address] [place] [address] Susanna Matthew CRNP [address] [place] [address] Allergies No known active allergiesdocumented as of this encounter (statuses as of 11/05/2023) Medications Medication Sig Dispensed Refills Start Date End Date Status 19 Oral Tablet Take 1 Tablet by mouth in the morning. 0 Active Citalopram Hydrobromide 20 MG Oral Tablet (CeleXA) Take 1 Tablet by mouth daily in the morning. 90 Tablet 1 02/15/2023 Active documented as of this encounter (statuses as of 11/05/2023) Active Problems Problem Noted Date Diagnosed Date [...] as of this encounter (statuses as of 11/05/2023) Resolved Problems Problem Noted Date Diagnosed Date Resolved Date , normal first 03/15/202208/02 Depression complicating , antepartum 03/15/20 22 08/20/2023 YOHAN (generalized anxiety disorder) 08/10/2017 10/17/2019 Acquired hypothyroidism 08/10/201710/01 Menstruation, irregular 04/17/201206/02 documented as of this encounter (statuses as of 11/05/2023) Immunizations Name Administration Dates Next Due DT [...] Inj 08/05/2014,09/03/2013 TDAP (age 10 and older)(Boostrix) 07/05/2022, Varicella Vaccine (Chicken Pox) 08/18/2008,07/14,06/22/1998 documented as of this encounter Social History Tobacco Use Types Packs/Day Years Used Date Smoking Tobacco: Former Cigarettes 0 Q uit: 10/13/2019 Smokeless Tobacco: Never Comments:Quit Oct 2019 Alcohol Use Standard Drinks/Week Comments No 0 (1 standard drink = 0.6 oz pur e alcohol) PHQ-2 Answer Date Recorded PHQ-2 Score 0 04/12/2020 Hunger Vital Sign Answer Date Recorded Within the past 12 months, y ou worried that your food would run out before you got the money to buy more. Patient refused Within the past 12 months, t he food you bought just didn't last and you didn't have money to get more. Patient refused [place] Depression Scale Answer Date Recorded [place] Depression Scale Total 0 07/23/2023 The thought [...] encounter Miscellaneous Notes * Telephone Encounter - Maya Pollard LPN - 10/23/2023 9:52 AM EST left message for patient to call office. Patient missed her last appointment and is on [facility] care report. MyG also sent documented in this encounter Plan of Treatment Upcoming Encounters Date Type Department Care Team (Late st Contact Info) Description 11/26/2023 9:40 AM EST [facility] [address] [place] [phone] [facility] [address] [place] [address] 11/26/2023 10:00 AM EST Office Visit Gynecology/Obstetrics [facility] [address] [address] Susanna Matthew CRNP [address] [place] [address] Health Maintenance Due Date Last Done Comments COVID-19 Vaccine (#1) 1997 Depression Screening 04/12/2021 04/12/2020 Influenza Vaccine (FLU shot) (#1) 2023 08/05/2014, 09/03/2013 Pap Smear 10/27/2025 10/27/2022, 03/31, 04/12/2020 DTaP,Tdap,and Td Vaccines (8 - Td or Tdap) 07/05/2032 07/05/2022, 04/16/2019, 11/19/2001, Additional history exists Hepatitis B Completed 1997, [...]
--- OUTSIDE RECORDS SUMMARY | 2024-01-28 09:41 | External Medical Summary | Summary of Care ---
Author Name Unknown Organization [facility] Address [address] [facility] [place] [address] Phone [phone] Care Team Providers Care Run Lead Name Role Phone Unavailable Primary Care Provider Unavailabl e Encounter Details Date Type Department Care Team (Late st Contact Info) Description 11/26/2023 Telephone Gynecology/Obstetrics [facility] [address] [facility] [place] [address] Jessica Roche MD [address] [place] [address] Allergies No known active allergiesdocumented as of this encounter (statuses as of 12/07/2023) Medications Medication Sig Dispensed Refills Start Date End Date Status 19 Oral Tablet Take 1 Tablet by mouth in the morning. 0 Active Citalopram Hydrobromide 20 MG Oral Tablet (CeleXA) Take 1 Tablet by mouth daily in the morning. 90 Tablet 1 02/15/2023 Active documented as of this encounter (statuses as of 12/07/2023) Active Problems Problem Noted Date Diagnosed Date [...] as of this encounter (statuses as of 12/07/2023) Resolved Problems Problem Noted Date Diagnosed Date Resolved Date , normal first 03/15/202208/02 Depression complicating , antepartum 03/15/20 22 08/20/2023 YOHAN (generalized anxiety disorder) 08/10/2017 10/17/2019 Acquired hypothyroidism 08/10/201710/01 Menstruation, irregular 04/17/201206/02 documented as of this encounter (statuses as of 12/07/2023) Immunizations Name Administration Dates Next Due DT [...] have money to get more. Patient declined [place] Depression Scale Answer Date Recorded [place] Depression Scale Total 0 07/23/2023 The thought [...] Telephone Encounter - Maya Pollard LPN - 11/26/2023 1:39 PM EST ----- Message from Jessica Roche MD sent at 11/26/2023 11:31 AM EST ----- Please kindly let patient know 1 hour glucose screening test was normal Thank you ----- Message ----- From: Kim Meehan Automated Processing Sent: 11/26/2023 11:30 AM EST To: Jessica Roche MD documented in this encounter Plan of Treatment Upcoming Encounters Date Type Department Care Team (Late st Contact Info) Description 12/17/2023 7:45 AM EDT Office Visit Gynecology/Obstetrics u[facility]miko Beckwith [address] [place] [address] Suzette Newman PA-C [address] [place] [address] Health Maintenance Due Date Last Done Comments Depression Screening 04/12/2021 04/12/2020 COVID-19 Vaccine (24 season) 2023 Influenza Vaccine (FLU shot) (#1) [...]
--- OUTSIDE RECORDS SUMMARY | 2024-01-28 09:41 | External Medical Summary | Summary of Care ---
Author Name Unknown Organization [facility] Address [address] [facility] [place] [address] Phone [phone] Care Team Providers Care Pupil Personnel Services Director Name Role Phone Unavailable Primary Care Provider Unavailabl e Encounter Details Date Type Department Care Team (Late st Contact Info) Description 11/27/2023 Telephone Gynecology/Obstetrics [facility] [address] [facility] [place] [address] Jessica Roche MD [address] [place] [address] Allergies No known active [...] have money to get more. Patient declined [place] Depression Scale Answer Date Recorded [place] Depression Scale Total 0 07/23/2023 The thought [...] Telephone Encounter - Maya Pollard LPN - 11/27/2023 11:50 AM EST ----- Message from Jessica Roche MD sent at 11/27/2023 11:23 AM EST ----- Please kindly let the patient know that syphilis screening was negative Thank you ----- Message ----- From: Kim Meehan Automated Processing Sent: 11/26/2023 11:30 AM EST To: Jessica Roche MD * Telephone Encounter - Maya Pollard LPN - 11/27/2023 9:14 AM EST ----- Message from Jessica Roche MD sent at 11/27/2023 9:07 AM EST ----- Please kindly let the patient know I was reviewing her results have come back, TSH was normal, CBC is normal, not anemic Thank you ----- Message ----- From: Kim Meehan Automated Processing Sent: 11/26/2023 11:30 AM EST To: Jessica Roche MD documented in this encounter Plan of Treatment Upcoming Encounters Date Type Department Care Team (Late st Contact Info) Description 12/17/2023 7:45 AM EDT Office Visit Gynecology/Obstetrics [facility] [address] [place] [address] Suzette Newman PA-C [address] [place] [address] Health Maintenance Due Date Last Done Comments [...]
--- OUTSIDE RECORDS SUMMARY | 2024-01-28 09:41 | External Medical Summary | Summary of Care ---
Author Name Unknown Organization [facility] Address [address] [place] [address] Phone [phone] Care Team Providers Care Independent Living Specialist Name Role Phone Unavailable Primary Care Provider Unavailabl e Reason for Visit * Reason Onset Date Comments MyCode Nonconsent - Not interested at this time 12/31/2023 Encounter Details Date Type Department Care Team (Late st Contact Info) Description 12/31/2023 Orders Only Outcomes Research Department [address] [place] [address] Adriana Emerson CHRA MyCode Nonconsent Documentation Allergies No known active allergiesdocumented as of [...] have money to get more. Patient declined [place] Depression Scale Answer Date Recorded [place] Depression Scale Total 0 07/23/2023 The thought [...] on file documented as of this encounter Progress Notes * Adriana Emerson CHRA - 12/31/2023 10:09 AM EDT T[employer]ode Nonconsent Documentation Kane Faust was approached in the clinic regarding participation in the [employer] Project and did not consent. documented in this encounter Plan of Treatment [...]
--- OUTSIDE RECORDS SUMMARY | 2024-01-28 09:41 | External Medical Summary ---
Author Name Unknown Address Unknown Organization K01:[facility]ORY [facility] [place] - [address] [facility] [place] [address] Laboratory Report Ordering Provider Test Date Status TREYGUYLUH 11/26/2023 10:14:55 Final Observation Date Value Abnormality Reference (Units ) Status SYNC LEUKOCYTES IN BLOOD BY AUTOMATED COUNT 11/26/2023 10:14:55 13.61 Above high normal 4.00-10.80 (K/uL) Final Segs 11/26/2023 10:14:55 74.3 40.0-75.0 (%) Final Lymphs % 11/26/2023 10:14:55 20.1 18.0-42.0 (%) Final Monos 11/26/2023 10:14:55 3.9 1.0-11.0 (%) Final Eosinophils 11/26/2023 10:14:55 0.4 0.0-6.0 (%) Final Basos 11/26/2023 10:14:55 0.4 0.0-2.0 (%) Final Immature Granulocyte, Percent 11/26/2023 10:14:55 0.9 0.0-2.0 (%) Final Absolute Segs 11/26/2023 10:14:55 10.13 Above high normal 1.80-7.70 (K/uL) Final Lymphs, absolute 11/26/2023 10:14:55 2.73 1.00-4.80 (K/ul) Final Monos, Abs 11/26/2023 10:14:55 0.53 0.00-1.10 (K/uL) Final Eos, Abs 11/26/2023 10:14:55 0.05 0.00-0.70 (K/uL) Final Basos, Abs 11/26/2023 10:14:55 0.05 0.00-0.20 (K/uL) Final Immature Granulocytes, Number 11/26/2023 10:14:55 0.12 0.00-0.20 (K/uL) Final Performing Location LABORATORY [facility] [place] - [address] [facility] [address]
--- OUTSIDE RECORDS SUMMARY | 2024-01-28 09:41 | External Medical Summary | Summary of Care ---
Author Name Unknown Organization [facility] Address [address] [facility] [address] Phone [phone] Care Team Providers Care Pattern Attendant Name Role Phone Unavailable Primary Care Provider Unavailabl e Reason for Visit * Reason Comments Outpatient Testing Encounter Details Date Type Department Care Team (Late st Contact Info) Description 11/26/2023 9:40 AM EST Laboratory Laboratory, [facility] [address] [facility] [phone] [facility] 132 [place] [address] Arrived Allergies No known active allergiesdocumented as of [...] have money to get more. Patient declined [place] Depression Scale Answer Date Recorded [place] Depression Scale Total 0 07/23/2023 The thought [...] as of this encounter Plan of Treatment Upcoming Encounters Date Type Department Care Team (Late st Contact Info) Description 11/26/2023 10:00 AM EST Office Visit Gynecology/Obstetric s [facility] [address] [place] [address] Susanna Matthew CRNP [address] [place] [address] Supervision of other normal , antepartum*; Limited care in second trimester; Need for prophylactic vaccination with combined ojlkkrzshr-uwpnzpb-od rtussis (DTP) vaccine Health Maintenance Due Date Last Done Comments [...]
--- OUTSIDE RECORDS SUMMARY | 2024-01-28 09:41 | External Medical Summary ---
Author Name Unknown Address Unknown Organization K01:[facility] - [address] [place] [address] Laboratory Report Ordering Provider Test Date Status JEREMIAH YANG 11/26/2023 10:14:55 Final Observation Date Value Abnormality Reference (Units ) Status WBC, Total 11/26/2023 10:14:55 13.61 Above high normal 4 .00-10.80 (K/uL) Final RBC 11/26/2023 10:14:55 4.01 3.85-5.15 (M/uL) Final Hemoglobin 11/26/2023 10:14:55 12.5 12.0-15.3 (g/dL) Final Anemia reflex testing trigge rs on a HGB < 12.0 for Females and HGB < 13.0 for Males in accordance with the WHO Anemia Guidelines
Anemia reflex testing triggers on a HGB < 12.0 for Females and HGB < 13.0 for Males in accordance with the WHO Anemia Guidelines HCT 11/26/2023 10:14:55 38.1 36.0-45.2 (%) Final MCV 11/26/2023 10:14:55 95.0 81.5-97.5 (fL) Final MCH 11/26/2023 10:14:55 31.2 27.0-34.0 (pg) Final MCHC 11/26/2023 10:14:55 32.8 32.0-36.0 (g/dL) Final RDW 11/26/2023 10:14:55 13.4 11.5-15.5 (%) Final Platelets 11/26/2023 10:14:55 296 140-400 (K /uL) Final MPV 11/26/2023 10:14:55 9.7 6.6-11.1 ( fL) Final Nucleated erythrocytes/100 leukocytes [Ratio] in Blood by Automated count 11/26/2023 10:14:55 0 <=0 (/100 WBCs) Fi [facility] Performing Location [facility] - [address] [facility] [address]
--- OUTSIDE RECORDS SUMMARY | 2024-01-28 09:41 | External Medical Summary | Summary of Care ---
Author Name Unknown Organization [facility] Address [address] [facility] [place] [address] Phone [phone] Care Team Providers Care Sde Name Role Phone Unavailable Primary Care Provider Unavailabl e Reason for Visit * Reason Comments Return Visit Encounter Details Date Type Department Care Team (Late st Contact Info) Description 11/26/2023 10:00 AM EST Office Visit Gynecology/Obstetric s Yumiko Beckwith [address] [place] [address] Susanna Matthew CRNP [address] [place] [address] Supervision of other normal , antepartum*; Limited care in second trimester; Need for prophylactic vaccination with combined zamerkhvuf-dcwoxfp-zu rtussis (DTP) vaccine Allergies No known active allergiesdocumented as of [...] have money to get more. Patient declined [place] Depression Scale Answer Date Recorded [place] Depression Scale Total 0 07/23/2023 The thought [...] Sign Reading Time Taken Comments Blood Pressure 102/64 11/26/2023 9:40 AM EST Pulse - - Temperature - - Respiratory Rate - - Oxygen Saturation - - Inhaled Oxygen Concentration - - Weight 70.3 kg (155 lb) 11/26/2023 9:40 AM EST Height 157.5 cm (5' 2") 11/26/2023 9:40 AM EST Body Mass Index 28.35 11/26/2023 9:40 AM EST documented in this encounter Progress Notes * Susanna Matthew CRNP - 11/26/2023 9:50 AM EST 27w5d Complaints: none Feeling well overall. Good FM. No contractions, bleeding, or LOF. Glucola, TDAP today. LYLA Alfredo * Tiny Pineda LPN - 11/26/2023 9:40 AM EST 27w5d Doing glucola today Would like tdap today documented in this encounter Nursing Notes * Tiny Pineda LPN - 11/26/2023 9:52 AM EST Patient here for tdap injection. Patient doing well no complaints. Injection given IM as ordered. Patient tolerated well. Patient to follow up as directed. Patient instructed to call if any complications. Patient verbalized understanding of instructions given and her follow up appt for 2 weeks Injection site: Right Deltoid Medication Source: Dispensed stock medication documented in this encounter Plan of Treatment [...] antepartum- Primary Limited care in second trimester Need for prophylactic vaccination with combined evgxmszjuz-zqomblu-fhebdovmq (DTP) vaccine documented in this encounter
--- OUTSIDE RECORDS SUMMARY | 2024-01-28 09:42 | External Medical Summary | Summary of Care ---
Author Name Unknown Organization [facility] Address [address] [facility] [place] [address] Phone [phone] Care Team Providers Care Transit Bus Driver Name Role Phone Unavailable Primary Care Provider Unavailabl e Reason for Visit * Reason Comments Return Visit Encounter Details Date Type Department Care Team (Late st Contact Info) Description 09/19/2023 3:00 PM EST Office Visit Gynecology/Obstetric s Leyvapenny Beckwith [address] [place] [address] Susanna Matthew CRNP [address] [place] [address] Supervision of other normal , antepartum* Allergies No known active allergiesdocumented as of this encounter (statuses as of 09/19/2023) Medications Medication Sig Dispensed Refills Start Date End Date Status 19 Oral Tablet Take 1 Tablet by mouth in the morning. 0 Active Citalopram Hydrobromide 20 MG Oral Tablet (CeleXA) Take 1 Tablet by mouth daily in the morning. 90 Tablet 1 02/15/2023 Active documented as of this encounter (statuses as of 09/19/2023) Active Problems Problem Noted Date Diagnosed Date Supervision of other normal , antepartu m [...] as of this encounter (statuses as of 09/19/2023) Resolved Problems Problem Noted Date Diagnosed Date Resolved Date , normal first 03/15/202208/02 Depression complicating , antepartum 03/15/2008/20/2023 YOHAN (generalized anxiety disorder) 08/10/2017 10/17/2019 Acquired hypothyroidism 08/10/201710/01 Menstruation, irregular 04/17/201206/02 documented as of this encounter (statuses as of 09/19/2023) Immunizations Name Administration Dates Next Due DT [...] have money to get more. Patient refused [place] Depression Scale Answer Date Recorded [place] Depression Scale Total 0 07/23/2023 The thought [...] Sign Reading Time Taken Comments Blood Pressure 106/78 09/19/2023 2:53 PM EST Pulse - - Temperature - - Respiratory Rate - - Oxygen Saturation - - Inhaled Oxygen Concentration - - Weight 64.6 kg (142 lb 6.4 oz) 09/19/2023 2:53 P M EST Height 157.5 cm (5' 2") 09/19/2023 2:53 PM EST Body Mass Index 26.05 09/19/2023 2:53 PM EST documented in this encounter Progress Notes * Susanna Matthew CRNP - 09/19/2023 3:03 PM EST 18w Hasn't been seen since NOB at 9w. Has questions regarding dating u/s, reassured corups luteum is WNL. Likely not interested in qnatal, order not placed today. +quickening. No bleeding. Anatomy u/s in 2 weeks. LYLA Alfredo documented in this encounter Nursing Notes * Isha Peterson LPN - 09/19/2023 2:56 PM EST 18w0d Would like to discuss US results. Denies concerns. Probably opting out of Qnatal. documented in this encounter Plan of Treatment Upcoming Encounters Date Type Department Care Team (Late st Contact Info) Description 10/08/2023 9:45 AM EST Imaging Radiology [facility] [address] [facility] [place] [address] 10/15/2023 11:30 AM EST Office Visit Gynecology/Obstetrics [facility] [address] [place] [address] Suzette Newman PA-C [address] [place] [address] Scheduled Orders Name Type Priority Associated Diagnoses Orde r Schedule US PREG SINGLE/1ST GEST, 14 WEEKS OR LATER Medical Imaging Routine Supervision of other normal , antepartum Expected: 10/03/2023 (Approximate), Expires: 10/20/2024 Health Maintenance Due Date Last Done Comments [...] Supervision of other normal , antepartum- Primary documented in this encounter
--- OUTSIDE RECORDS SUMMARY | 2024-01-28 09:42 | External Medical Summary | Summary of Care ---
Author Name Unknown Organization [facility] Address [address] [facility] [address] Phone [phone] Care Team Providers Care Clinical Research Analyst Name Role Phone Unavailable Primary Care Provider Unavailabl e Reason for Visit * Reason Comments Return Visit Encounter Details Date Type Department Care Team (Late st Contact Info) Description 10/29/2023 9:15 AM EST Office Visit Gynecology/Obstetric [facility] [address] [facility] [place] [address] [facility] [address] [facility] [place] [address] 23 weeks gestation of *; Limited care in second trimester; Supervision of other normal , antepartum Allergies No known active allergiesdocumented as of this encounter (statuses as of 10/29/2023) Medications Medication Sig Dispensed Refills Start Date End Date Status 19 Oral Tablet Take 1 Tablet by mouth in the morning. 0 Active Citalopram Hydrobromide 20 MG Oral Tablet (CeleXA) Take 1 Tablet by mouth daily in the morning. 90 Tablet 1 02/15/2023 Active documented as of this encounter (statuses as of 10/29/2023) Active Problems Problem Noted Date Diagnosed Date [...] as of this encounter (statuses as of 10/29/2023) Resolved Problems Problem Noted Date Diagnosed Date Resolved Date , normal first 03/15/202208/02 Depression complicating , antepartum 03/15/20 22 08/20/2023 YOHAN (generalized anxiety disorder) 08/10/2017 10/17/2019 Acquired hypothyroidism 08/10/201710/01 Menstruation, irregular 04/17/201206/02 documented as of this encounter (statuses as of 10/29/2023) Immunizations Name Administration Dates Next Due DT [...] have money to get more. Patient refused [place] Depression Scale Answer Date Recorded La[place] Depression Scale Total 0 07/23/2023 The thought [...] Sign Reading Time Taken Comments Blood Pressure 114/76 10/29/2023 9:05 AM EST Pulse - - Temperature - - Respiratory Rate - - Oxygen Saturation - - Inhaled Oxygen Concentration - - Weight 67.4 kg (148 lb 9.6 oz) 10/29/2023 9:05 A M EST Height 157.5 cm (5' 2") 10/29/2023 9:05 AM EST Body Mass Index 27.18 10/29/2023 9:05 AM EST documented in this encounter Progress Notes * Jessica Roche MD - 10/29/2023 9:15 AM EST Patient is 28 year old at 23 5/7 weeks who presents for LUIS visit Denies contractions, leaking of fluid, or vaginal bleeding. Noted good movement Denies headache, blurry vision, RUQ or epigastric pain. History of hypothyroidism-not currently on meds, no Tsh done since 2021 Problem list reviewed BP 114/76 | Ht 1.575 m (5' 2") | Wt 67.4 kg (148 lb 9.6 oz) | LMP 05/16/2023 | BMI 27.18 kg/m | BSA 1.72 m FH: 23 FHT: 125 Plan: Labor and preeclampsia warnings reviewed Flu vaccine declined 3rd trimester labs, 1hr OGTT, and TSH ordered RTC 3 weeks V Kaley BETANCOURT PhD documented in this encounter Nursing Notes * Isha Peterson LPN - 10/29/2023 9:07 AM EST w5d Would like to discuss US results. Corpus luteum vs endometrioma on initial dating US? documented in this encounter Plan of Treatment Upcoming Encounters Date Type Department Care Team (Late st Contact Info) Description 11/26/2023 9:40 AM EST Laboratory Laboratory, [facility] [address] [place] [address] [facility] [address] [place] [address] 11/26/2023 10:00 AM EST Office Visit Gynecology/Obstetrics [facility] [address] [place] [address] Susanna Matthew CRNP [address] [place] [address] Scheduled Orders Name Type Priority Associated Diagnoses Orde r Schedule SYPHILIS ANTIBODY SCREEN WITH REFLEX TO RPR Lab Routine 23 weeks gestation of Expected: 11/29/2023 (Approximate), Expires: 10/29/2024 CBC WITH WBC DIFFERENTIAL AND ANEMIA REFLEX WORKUP Lab Routine 23 weeks gestation of Expected: 11/29/2023 (Approximate), Expires: 10/29/2024 50-G GESTATIONAL GLUCOSE, 1 HOUR Lab Routine 23 weeks gestation of Expected: 11/29/2023 (Approximate), Expires: 10/29/2024 TSH WITH FREE T4 IF INDICATED Lab Routine 23 weeks gestation of Expected: 10/29/2023, Expires: 10/29/2024 Health Maintenance Due Date Last Done Comments [...] Visit Diagnoses Diagnosis 23 weeks gestation of - Primary state, incidental Limited care in second trimester Supervision of other normal , antepartum documented in this encounter
[2024-01-28] MEDS: LACTATED RINGER'S 1,000 ML IV PRN (09:44)
[2024-01-28] MEDS: PENICILLIN GK 6 MU in DEXTROSE 5% 250 ML IV STA (10:04)
[2024-01-28] MEDS ORDERED: fentaNYL citrate PF 100 MCG/2 ML VIAL EPI PRN (10:07)
[2024-01-28] MEDS ORDERED: NALOXONE HCL 1 MG in SODIUM CHLORIDE 0.9% 1,000 ML IV PRN (10:07)
[2024-01-28] MEDS ORDERED: LIDOCAINE 2% MPF LOCAL 5 ML VIAL EPI PRN (10:07)
[2024-01-28] MEDS ORDERED: NALBUPHINE HCL 5 MG in SYRINGE 0 ML IV PRN (10:07)
[2024-01-28] MEDS ORDERED: ROPIVACAINE 0.5% PF 5 MG/ML 20 ML VIAL EPI PRN (10:07)
[2024-01-28] MEDS ORDERED: NALOXONE HCL 0.4 MG/1 ML VIAL/CARP IV PRN (10:07)
[2024-01-28] MEDS ORDERED: SODIUM CHLORIDE 0.9% PF INJ 10 ML VIAL EPI PRN (10:07)
[2024-01-28] MEDS ORDERED: diphenhydrAMINE 50 MG/ML VIAL IV PRN (10:07)
[2024-01-28] MEDS ORDERED: BUPIVACAINE 0.25% PF 30 ML VIAL EPI PRN (10:07)
--- NOTE | 2024-01-28 10:09 | Anesthesiology Consultation ---
Date of Service January 28, 2024 Assessment & Plan (1) Encounter for pre-operative examination: Chart Review Chart Review: Patient NOT seen in Pre Admission Testing and Acceptable Risk for Labor Epidural Consults Requested none History Height/Weight Height: 5 ft 2 in Weight: 73.028 kg Allergies Allergy/AdvReac Type Severity Reaction Status Date / Time No Known Allergies Allergy Unverified 09/16/22 09:40 Medications Home Medications Medication Instructions Recorded Confirmed Last Taken citalopram 20 mg tablet (Celexa) 20 mg PO DAILY 09/16/22 09/16/22 09/15/22 vits no.124-ferrous fum 1 tab PO DAILY 09/16/22 09/16/22 09/15/22 27 mg iron-folic acid 800 mcg tablet ( Vitamin) ibuprofen 600 mg tablet 600 mg PO Q6 #40 tabs 09/18/22 Unknown vits no.124-ferrous fum 1 tab PO DAILY@08 #90 tabs 09/18/22 Unknown 27 mg iron-folic acid 800 mcg tablet ( Vitamin) Active Medications Generic Name Dose Route Start Last Admin Trade Name Nabeel PRN Reason Stop Dose Admin Lactated Ringer's 1,000 mls @ 125 mls/hr 01/28/24 09:25 01/28/24 09:44 Lr IV 01/30/24 09:24 999 mls/hr .Q8H PRN Administration L&D Protocol Protocol Penicillin G Potassium 6 mu/ 262 mls @ 262 mls/hr 01/28/24 09:25 01/28/24 10:04 Dextrose IV 01/28/24 10:24 262 mls/hr NOW STA Administration Past Medical History Medical History (Updated 01/28/24 @ 10:09 by Nando Ellsworth MD) Encounter for pre-operative examination Anxiety and depression Exercise / Class Metabolic Activity II 4-5 Yardwork/Stairs/Walk up hill Past Surgical History Surgical History H/O wisdom tooth extraction Social History Smoking Status: Never smoker Do You Dip or Chew Tobacco: No Hx Alcohol Use: No Hx Substance Use: No substance use type: does not use Physical Exam Vital Signs Last Vital Signs Temp 36.5 C 01/28/24 08:52 Pulse 96 H 01/28/24 10:31 Resp 18 01/28/24 08:45 BP 110/62 01/28/24 10:31 Pulse Ox 98 01/28/24 10:31 Testing Laboratory Results 01/28/24 09:46
[2024-01-28 10:11] LABS: Mean Corpuscular Hemoglobin 28.8 pg (25.0-34.0); Mean Corpuscular Hgb Conc 32.4 g/dL (32.0-36.0); Mean Platelet Volume 9.5 fL (9.4-12.4); Platelet Count 257 K/uL (130-400); RDW Coefficient of Variation 13.4 % (11.5-14.5); RDW Standard Deviation 43.5 fL (36.4-46.3); Red Blood Count 3.82 M/uL (4.20-5.40); White Blood Count 14.06 K/ul (4.8-10.8)
[2024-01-28] MEDS: fentaNYL citrate PF 100 MCG/2 ML VIAL EPI STA (10:35)
[2024-01-28] MEDS: BUPIVACAINE 0.25% PF 30 ML VIAL EPI STA (10:35)
[2024-01-28] MEDS: LIDOCAINE 2%/EPINEPHRINE 1:200,000 20 ML PF EPI STA (10:36)
[2024-01-28] MEDS: fentANYL 2 MCG/ML BUPIVacaine 0.125%-NSS 100ML BAG EPI PRN (10:45)
[2024-01-28] MEDS: ONDANSETRON INJ 2 MG/ML 2 ML VIAL IV PRN (11:04)
--- NOTE | 2024-01-28 12:19 | Obstetrical Progress Note ---
Date of Service January 28, 2024 Assessment & Plan Admission and Anticipated Discharge Date Admission Date: January 28, 2024 Subjective Patient is reevaluated. She has received epidural and comfortable now. First dose of penicillin was completed at 11. Cervix is rechecked and it is 7 cm dilated with a large bulging bag head is at - 2. heart rate category 1. Contractions spaced out. Continue to monitor closely, plan to AROM after second dose of PCN. Results & Data Vital Signs (Past 12 Hours) Vital Signs Temp Pulse Resp BP Pulse Ox 01/28/24 12:16 81 98 01/28/24 12:13 77 91/49 L 01/28/24 12:11 88 97 01/28/24 12:06 85 98 01/28/24 12:01 86 99 01/28/24 11:56 72 98 01/28/24 11:51 84 98 01/28/24 11:46 84 99 01/28/24 11:43 83 107/65 01/28/24 11:41 78 97 01/28/24 11:36 70 98 01/28/24 11:31 81 98 01/28/24 11:30 18 01/28/24 11:30 18 01/28/24 11:26 81 98 01/28/24 11:21 82 99 01/28/24 11:16 76 97 01/28/24 11:11 85 98 01/28/24 11:08 82 108/66 01/28/24 11:06 87 97 01/28/24 11:04 87 127/80 01/28/24 11:01 86 99 01/28/24 11:00 18 01/28/24 11:00 36.6 C 18 01/28/24 10:59 80 01/28/24 10:59 106/60 01/28/24 10:59 83 97/56 L 01/28/24 10:58 85 104/62 01/28/24 10:56 92 H 97 01/28/24 10:54 86 110/76 01/28/24 10:53 85 114/83 01/28/24 10:51 87 97 01/28/24 10:49 87 111/63 01/28/24 10:47 93 H 103/59 L 01/28/24 10:46 88 97 01/28/24 10:45 86 102/57 L 01/28/24 10:43 85 110/53 L 01/28/24 10:41 86 104/56 L 97 01/28/24 10:39 86 101/55 L 01/28/24 10:37 83 100/56 L 01/28/24 10:36 84 97 01/28/24 10:35 85 100/59 L 01/28/24 10:34 84 106/55 L 01/28/24 10:31 98 01/28/24 10:31 96 H 01/28/24 10:31 87 110/62 01/28/24 10:26 91 H 99 01/28/24 10:21 104 H 100 01/28/24 10:16 97 H 100 01/28/24 10:14 85 111/75 01/28/24 10:11 97 H 99 01/28/24 08:52 36.5 C 01/28/24 08:45 36.5 C 82 18 107/65
[2024-01-28] MEDS: ePHEDrine sulfate 50 MG/ML AMP IV PRN (12:20)
[2024-01-28] MEDS: PENICILLIN GK 3 MU in DEXTROSE 5% 100 ML IV PRN (13:48)
[2024-01-28] MEDS: OXYTOCIN 30 UNITS/NSS 30 UNITS/500 ML BAG IV PRN (15:17)
--- NOTE | 2024-01-28 15:33 | Obstetrical Progress Note ---
Date of Service January 28, 2024 Assessment & Plan Admission and Anticipated Discharge Date Admission Date: January 28, 2024 Subjective Patient has received 2 doses of PCN VE; 7/ 70%,larfe bag AROM'ed c;ear fluid, -2 FHR categ I Continue to monitor closely Anticipate Results & Data Vital Signs (Past 12 Hours) Vital Signs Temp Pulse Resp BP Pulse Ox 01/28/24 15:27 97 H 104/65 01/28/24 15:26 99 H 100 01/28/24 15:21 95 H 99 01/28/24 15:17 110 H 105/58 L 01/28/24 15:16 108 H 100 01/28/24 15:14 87 98/55 L 01/28/24 15:13 83 88/52 L 01/28/24 15:11 90 99 01/28/24 15:06 85 91/50 L 99 01/28/24 15:01 81 99 01/28/24 14:57 79 93/54 L 01/28/24 14:56 79 99 01/28/24 14:51 83 98 01/28/24 14:49 88 94/50 L 01/28/24 14:46 91 H 99 01/28/24 14:41 82 97 01/28/24 14:38 84 94/51 L 01/28/24 14:36 92 H 99 01/28/24 14:31 78 98 01/28/24 14:27 93 H 97/52 L 01/28/24 14:26 89 97 01/28/24 14:21 80 97 01/28/24 14:17 79 97/53 L 01/28/24 14:16 80 97 01/28/24 14:11 92 H 98 01/28/24 14:06 89 98/55 L 97 01/28/24 14:01 88 98 01/28/24 13:57 83 98/55 L 01/28/24 13:56 85 98 01/28/24 13:55 88 106/57 L 01/28/24 13:51 111 H 99 01/28/24 13:46 106 H 109/61 98 01/28/24 13:41 81 98 01/28/24 13:36 102 H 102/64 99 01/28/24 13:31 93 H 98 01/28/24 13:26 91 H 113/63 100 01/28/24 13:24 104 H 92 01/28/24 13:21 100 H 100 01/28/24 13:18 95 H 106/63 01/28/24 13:16 89 100 01/28/24 13:11 77 97 01/28/24 13:06 80 96/51 L 97 01/28/24 13:01 79 97 01/28/24 12:59 90 101/54 L 01/28/24 12:56 77 99 01/28/24 12:51 83 99 01/28/24 12:48 83 101/52 L 01/28/24 12:46 85 99 01/28/24 12:41 78 99 01/28/24 12:36 99 01/28/24 12:36 71 01/28/24 12:36 71 105/52 L 01/28/24 12:34 71 95/50 L 01/28/24 12:31 80 100 01/28/24 12:30 78 18 89/52 L 01/28/24 12:27 74 96/53 L 01/28/24 12:26 71 98 01/28/24 12:25 72 96/54 L 01/28/24 12:21 80 98 01/28/24 12:19 75 83/52 L 01/28/24 12:16 81 98 01/28/24 12:13 77 91/49 L 01/28/24 12:11 88 97 01/28/24 12:06 85 98 01/28/24 12:01 86 99 01/28/24 11:56 72 98 01/28/24 11:51 84 98 01/28/24 11:46 84 99 01/28/24 11:43 83 107/65 01/28/24 11:41 78 97 01/28/24 11:36 70 98 01/28/24 11:31 81 98 01/28/24 11:30 18 01/28/24 11:30 18 01/28/24 11:26 81 98 01/28/24 11:21 82 99 01/28/24 11:16 76 97 01/28/24 11:11 85 98 01/28/24 11:08 82 108/66 01/28/24 11:06 87 97 01/28/24 11:04 87 127/80 01/28/24 11:01 86 99 01/28/24 11:00 18 01/28/24 11:00 36.6 C 18 01/28/24 10:59 80 01/28/24 10:59 106/60 01/28/24 10:59 83 97/56 L 01/28/24 10:58 85 104/62 01/28/24 10:56 92 H 97 01/28/24 10:54 86 110/76 01/28/24 10:53 85 114/83 01/28/24 10:51 87 97 01/28/24 10:49 87 111/63 01/28/24 10:47 93 H 103/59 L 01/28/24 10:46 88 97 01/28/24 10:45 86 102/57 L 01/28/24 10:43 85 110/53 L 01/28/24 10:41 86 104/56 L 97 01/28/24 10:39 86 101/55 L 01/28/24 10:37 83 100/56 L 01/28/24 10:36 84 97 01/28/24 10:35 85 100/59 L 01/28/24 10:34 84 106/55 L 01/28/24 10:31 98 01/28/24 10:31 96 H 01/28/24 10:31 87 110/62 01/28/24 10:26 91 H 99 01/28/24 10:21 104 H 100 01/28/24 10:16 97 H 100 01/28/24 10:14 85 111/75 01/28/24 10:11 97 H 99 01/28/24 08:52 36.5 C 18 01/28/24 08:45 36.5 C 82 18 107/65
[2024-01-28] MEDS: fentaNYL citrate PF 100 MCG/2 ML VIAL ONE (15:49)
[2024-01-28] MEDS: fentANYL 2 MCG/ML BUPIVacaine 0.125%-NSS 100ML BAG ONE (15:50)
[2024-01-28] MEDS: ePHEDrine sulfate 50 MG/ML AMP ONE (15:50)
[2024-01-28] MEDS: SODIUM CHLORIDE 0.9% PF INJ 10 ML VIAL EPI STA (15:50)
[2024-01-28] MEDS: LIDOCAINE 2%/EPINEPHRINE 1:200,000 20 ML PF ONE (15:50)
[2024-01-28] MEDS: SODIUM CHLORIDE 0.9% PF INJ 10 ML VIAL ONE (15:50)
[2024-01-28] MEDS: BUPIVACAINE 0.25% PF 30 ML VIAL ONE (15:50)
[2024-01-28] MEDS ORDERED: ACETAMINOPHEN 325 MG TAB PO PRN (17:27)
[2024-01-28] MEDS ORDERED: HYDROCORTISONE ACETATE 25 MG SUPP PR PRN (17:27)
[2024-01-28] MEDS ORDERED: bisacodyL 10 MG SUPP PR PRN (17:27)
--- NOTE | 2024-01-28 17:35 | Delivery Summary ---
Vaginal Delivery Summary Date of Service January 28, 2024 Vaginal Delivery Summary Patient was found to be fully dilated and desires to push. She pushed for about 10 min and delivered the head and then shoulders with minimal traction. The baby was handed off to the mother. The cord was clampedx2 and cut at 1 minute. The vagina and perineum were checked and found to have 1st degree laceration at 6 o'clock position. It was repaired with 3/0 vicryl. The placenta was delivered spontaneously as intact and complete. The uterus was explored and found to be empty. QBL is 283 ml. The fundus was firm. The baby was a viable male infant, Apgars 7/9, the weight is pending The mother and the baby tolerated the procedure well. No complications happened and I was present during whole procedure.
[2024-01-28] MEDS: MINERAL OIL 30 ML UDC ONE (17:38)
[2024-01-28] MEDS: DIPHTHER/TETAN/PERTUS Vaccine (Tdap, Adol/Adult) 0.5mL IM ONE (17:40)
[2024-01-28] MEDS: MEASLES, MUMPS & RUBELLA VIRUS VACCINE (MMR) 0.5ML VIAL SQ ONE (17:41)
--- NOTE | 2024-01-28 18:23 | Anesthesia Procedure Note ---
Date of Service January 28, 2024 Anesthesia Post Epidural Note Vital Signs Vital Signs: Temp Pulse Resp BP Pulse Ox 36.5 C 73 18 104/60 94 01/28/24 15:00 01/28/24 18:09 01/28/24 18:05 01/28/24 18:09 01/28/24 17:16 Notes Mental Status: alert / awake / arousable and participated in evaluation Patient Amnestic to Procedure: No Nausea / Vomiting: adequately controlled Pain: adequately controlled Airway Patency, RR, SpO2: stable & adequate BP & HR: stable & adequate Hydration State: stable & adequate Neuraxial Anesthesia: was administered and sensory block is resolving Anesthetic Complications: no major complications apparent and Pt Satisfied with anesthetic care Epidural: Removed without complications and With tip intact
[2024-01-28] MEDS: BENZOCAINE 20% SPRY 85 APPLN/85 GM CAN EXT PRN (19:35)
[2024-01-28] MEDS: IBUPROFEN 600 MG TAB PO PRN (19:35)
[2024-01-28] MEDS: ACETAMINOPHEN 325 MG TAB PO PRN (19:37)
[2024-01-28] MEDS: DOCUSATE SODIUM 100 MG CAP PO SCH (21:29)
[2024-01-28] MEDS: CITALOPRAM 20 MG TAB PO SCH (21:29)
[2024-01-29 06:41] LABS: Hemoglobin 10.3 g/dl (12.0-16.0); Mean Corpuscular Hemoglobin 29.4 pg (25.0-34.0); Mean Corpuscular Hgb Conc 33.2 g/dL (32.0-36.0); Mean Corpuscular Volume 88.6 fL (80.0-100.0); Mean Platelet Volume 9.6 fL (9.4-12.4); Platelet Count 244 K/uL (130-400); RDW Coefficient of Variation 13.5 % (11.5-14.5); RDW Standard Deviation 43.8 fL (36.4-46.3); White Blood Count 13.49 K/ul (4.8-10.8)
[2024-01-29] MEDS: FERROUS SULFATE 325 MG TAB PO SCH (08:29)
[2024-01-29] MEDS: PRENATAL VITAMIN 1 TAB PO SCH (08:29)
[2024-01-29] MEDS ORDERED: PRENATAL VITAMIN 1 TAB PO SCH (09:00)
--- NOTE | 2024-01-29 11:58 | Obstetrical Progress Note ---
Date of Service January 29, 2024 Subjective Ambulation: ambulating normally Voiding: no voiding problems Passing Gas:: Yes Diet Tolerance:: regular diet Lochia:: Small Feeding Type:: breast feeding Current Pain Level(1-10): 0 doing well Review of Systems All systems reviewed & are unremarkable except as noted in HPI & below Physical Exam Constitutional WD/WN, vitals as above Gastrointestinal (Abdomen) Inspection/Auscultation: abdomen normal to inspection Musculoskeletal Extremities: extremities normal to inspection Skin no rashes, warm and dry Neurologic patellar DTR's 2+ bilat, sensation intact Psychiatric A+Ox3, euthymic affect Results & Data Vital Signs (Past 12 Hours) Vital Signs Temp Pulse Resp BP BP Pulse Ox O2 Del Method 01/29/24 11:15 36.7 C 70 18 105/70 98 Room Air 01/29/24 08:15 36.8 C 64 18 107/72 98 Room Air 01/29/24 03:20 36.8 C 71 18 107/51 L 97 Room Air Laboratory Results Laboratory Results - last 48 hr 01/28/24 01/29/24 09:46 06:21 WBC 14.06 H 13.49 H RBC 3.82 L 3.50 L Hgb 11.0 L 10.3 L Hct 34.0 L 31.0 L MCV 89.0 88.6 MCH 28.8 29.4 MCHC 32.4 33.2 RDW Std Deviation 43.5 43.8 RDW Coeff of Josep 13.4 13.5 Plt Count 257 244 MPV 9.5 9.6
[2024-01-29] MEDS: bisacodyL 5 MG TABEC PO SCH (21:32)
[2024-01-30 06:24] LABS: Hematocrit (blood only) 31.9 % (37.0-47.0); Hemoglobin 10.6 g/dl (12.0-16.0)
--- NOTE | 2024-01-30 08:32 | Obstetrical Progress Note ---
Date of Service January 30, 2024 Assessment & Plan Admission and Anticipated Discharge Date Admission Date: January 28, 2024 Subjective Patient is seen and examined. She feels well, no complaints. Ambulating without dizziness Voiding without difficulty Tolerating regular diet with out N&V Bleeding is minimal No fever/ chills/ CP/ SOB/ N&V/ Leg pain Bottle feeding without problems Vital Signs Temp Pulse Resp BP O2 Del Method 01/30/24 00:45 36.7 C 76 18 95/59 L Room Air Lab Results 01/28/24 01/29/24 01/30/24 Range/Units 09:46 06:21 06:03 WBC 14.06 H 13.49 H (4.8-10.8) K/ul RBC 3.82 L 3.50 L (4.20-5.40) M/uL Hgb 11.0 L 10.3 L 10.6 L (12.0-16.0) g/dl Hct 34.0 L 31.0 L 31.9 L (37.0-47.0) % MCV 89.0 88.6 (80.0-100.0) fL MCH 28.8 29.4 (25.0-34.0) pg MCHC 32.4 33.2 (32.0-36.0) g/dL RDW Std Deviation 43.5 43.8 (36.4-46.3) fL RDW Coeff of Josep 13.4 13.5 (11.5-14.5) % Plt Count 257 244 (130-400) K/uL MPV 9.5 9.6 (9.4-12.4) fL PE: General: Alert, orientedx3, NAD Abd: soft, NT, fundus firm, below Umbilicus Perineum intact, Lochia rubra minimal Ext; NT, no edema AP: 28 yo s/p , ppd# 2 VSS Afebrile doing well Continue routine care All questions were answered D/C home , f/u in office Results & Data Vital Signs (Past 12 Hours) Vital Signs Temp Pulse Resp BP O2 Del Method 01/30/24 00:45 36.7 C 76 18 95/59 L Room Air
== END 2024-01-30 13:35 | disposition home health service (06) | DRG 807 ==
LOC: OPB 08:35 → 4S1 08:37 → 4E2 20:48